=== PATIENT | male | born 1975 | race Caucasian/White ===

== ENCOUNTER 2019-07-13 03:59 | Emergency (ER) | payer OTHER ==
[~2019-07-13] VITALS: Ht 185.4 cm; Wt 120.2 kg
[2019-07-13] MEDS ORDERED: LIPITOR 20 MG T20 M1 PO (04:09)
[2019-07-13] MEDS ORDERED: LISINOPRIL2.5 MG PO (04:09)
[2019-07-13 05:04] LABS: HEMATOCRIT 44.1 % (42.0-52.0); HEMOGLOBIN 14.9 gm/dL (14.0-18.0); MCH 31.3 pg (26.0-34.0); MCHC 33.9 g/dL (28.0-37.0); MCV 92.3 fL (80.0-100.0); MPV 8.1 fl. (7.2-11.1); RBC 4.78 mil/uL (4.50-6.00); RDW-CV 13.1 % (10.5-14.5); WBC 11.1 thou/uL (4.0-11.0)
[2019-07-13 05:10] LABS: CALCIUM 8.2 mg/dL (8.5-10.1); CREATININE 1.5 mg/dL (0.6-1.3); POTASSIUM 4.1 mmol/L (3.5-5.1)
[2019-07-13 05:17] LABS: URINE CLARITY CLEAR; URINE COLOR ORANGE
[2019-07-13] MEDS ORDERED: HYDROCODON-ACE1 EAC7 PO (05:25)
[2019-07-13] MEDS ORDERED: ZOFRAN ODT4 MG PO (05:25)
[2019-07-13] MEDS ORDERED: TORADOL 10 MG T10 MG PO (05:25)
[2019-07-13] MEDS ORDERED: FLOMAX0.4 MG PO (05:29)
[2019-07-13 05:31] LABS: URINE PROTEIN ND (Negative)
[2019-07-13 05:32] LABS: ACETEST (KETONE CONFIRMATORY) Negative (Negative); ICTOTEST (BILI CONFIRMATORY) Negative (Negative); URINE BILIRUBIN ND (Negative); URINE BLOOD ND (Negative); URINE GLUCOSE-RANDOM ND (Negative); URINE KETONES ND (Negative); URINE LEUKOCYTES-REFLEX ND (Negative); URINE NITRITE-REFLEX ND (Negative); URINE REDUCING SUBSTANCE NEGATIVE (Negative); URINE UROBILINOGEN ND E.U./dl (0.2-1.0)
[2019-07-13 05:34] LABS: SQUAMOUS 0-3 Few /LPF (0-3); URINE RBC 3-10 Few /HPF (0-2); URINE WBC-REFLEX 6-15 Few /HPF (0-5)
[2019-07-13 05:35] LABS: CASTS None Seen /LPF (None Seen); CRYSTALS None Seen /LPF (None Seen); MUCUS 0-3 Light strn/LPF (None Seen)
[2019-07-13 06:20] VITALS: BP 121/88
== END 2019-07-13 06:21 | disposition home or self-care (01) ==
LOC: M.ERS 03:59
PROVIDERS: Personal Emergency Response Attendant
DX: N23 Unspecified renal colic (principal); I10 Essential (primary) hypertension